=== PATIENT | male | born 2000 | race Caucasian/White ===

== ENCOUNTER 2020-03-15 16:43 | Inpatient (IN) | payer OTHER ==
[~2020-03-15] VITALS: Ht 184.9 cm; Wt 78.0 kg
[2020-03-15 17:00] VITALS: BP 128/84
[2020-03-15] MEDS: AMANTADINE HCL 50 MG/5 ML SYRUP ORAL.SYG PEG SCH (21:57)
[2020-03-15 23:12] LABS: C.DIFF GDH ANTIGEN, Stool Negative (Negative); C.DIFF TOXINS A&B, Stool Negative (Negative)
[2020-03-16] MEDS: 0.9% SODIUM CHLORIDE 10 ML SYRINGE IVP SCH ×4 (00:29→23:22)
[2020-03-16 00:30] VITALS: BP 126/78
[2020-03-16] MEDS ORDERED: INFLUENZA VIRUS VACCINE QVS 2019-20 (3YR+)/PF 60 MCG/0.5 ML SYRINGE IM ONE (00:30)
[2020-03-16 07:15] VITALS: BP 138/76
[2020-03-16] MEDS ORDERED: MODAFINIL 100 MG TABLET PO SCH (09:00)
[2020-03-16 09:09] LABS: BASOPHILS % (AUTO) 0.4 % (0.0-2.0); EOSINOPHILS % (AUTO) 2.4 % (1.0-6.0); HEMATOCRIT 34.9 % (41-53); HEMOGLOBIN 11.5 g/dL (13.5-17.5); LYMPHOCYTES # (AUTO) 0.9 K/uL (1.0-4.8); LYMPHOCYTES % (AUTO) 10.5 % (22.0-44.0); MEAN CORPUSCULAR HEMOGLOBIN 29.3 pg (26.0-34.0); MEAN CORPUSCULAR VOLUME 89 fL (80-100); MONOCYTES # (AUTO) 0.6 K/uL (0.1-1.0); MONOCYTES % (AUTO) 7.3 % (2.0-9.0); NEUTROPHILS # (AUTO) 6.5 K/uL (1.8-7.7); NEUTROPHILS % (AUTO) 79.4 % (40.0-70.0); PLATELET COUNT (AUTO) 290 K/uL (150-450); RED BLOOD CELL COUNT(AUTO) 3.92 MIL/uL (4.50-5.90); RED CELL DISTRIBUTION WIDTH 13.2 % (11.5-14.5)
[2020-03-16 09:25] LABS: ALANINE AMINOTRANSFERASE 95 U/L (12-78); ALBUMIN 3.3 g/dL (3.4-5.0); ALKALINE PHOSPHATASE 119 U/L (46-116); ANION GAP 10 mmol/L (8-16); ASPARTATE AMINOTRANSFERASE 44 U/L (15-37); BILIRUBIN,TOTAL 0.4 mg/dL (0.1-1.0); CALCIUM, TOTAL 9.3 mg/dL (8.8-10.5); CARBON DIOXIDE 27 mmol/L (22-29); CHLORIDE 101 mmol/L (98-107); CREATININE 0.65 mg/dL (0.60-1.30); GLOMERULAR FILTR. RATE CALC > 60 mL/min (>60); GLUCOSE,RANDOM 127 mg/dL (70-110); POTASSIUM 3.8 mmol/L (3.5-5.1); SODIUM SERUM 138 mmol/L (136-145); UREA NITROGEN, BLOOD 18 mg/dL (7-18)
[2020-03-16] MEDS: ENOXAPARIN SODIUM 40 MG/0.4 ML PF SYRINGE SQ SCH (09:34)
[2020-03-16] MEDS: AMANTADINE HCL 50 MG/5 ML SYRUP ORAL.SYG PEG SCH ×2 (09:34→21:13)
[2020-03-16] MEDS: MODAFINIL 100 MG TABLET PEG SCH (09:34)
[2020-03-16 15:26] VITALS: BP 118/71
[2020-03-16] MEDS: ACETAMINOPHEN 650 MG/20.3 ML SOLUTION UDCUP PEG PRN (17:15)
[2020-03-16] MEDS: TRIAMCINOLONE 0.1% 15 GM OINTMENT TP SCH (21:11)
[2020-03-16] MEDS: DiphenhydrAMINE HCL 25 MG CAPSULE GT PRN (21:11)
[2020-03-17] VITALS: BP 124/76
[2020-03-17 06:08] LABS: C.DIFF GDH ANTIGEN, Stool Negative (Negative); C.DIFF TOXINS A&B, Stool Negative (Negative)
[2020-03-17 08:00] VITALS: BP 130/76
[2020-03-17] MEDS: MODAFINIL 100 MG TABLET PEG SCH (09:43)
[2020-03-17] MEDS: AMANTADINE HCL 50 MG/5 ML SYRUP ORAL.SYG PEG SCH ×2 (09:44→19:52)
[2020-03-17] MEDS: ENOXAPARIN SODIUM 40 MG/0.4 ML PF SYRINGE SQ SCH (09:44)
[2020-03-17] MEDS: TRIAMCINOLONE 0.1% 15 GM OINTMENT TP SCH ×3 (09:46→19:55)
[2020-03-17] MEDS: 0.9% SODIUM CHLORIDE 10 ML SYRINGE IVP SCH ×3 (09:47→23:11)
[2020-03-17] MEDS: PSYLLIUM SEED ORANGE SF 5.8 GM/PACKET PO SCH (12:24)
[2020-03-17 16:26] VITALS: BP 122/83
[2020-03-17] MEDS: MUPIROCIN CALCIUM 2% 22 GM OINTMENT NASAL SCH (19:52)
[2020-03-17] MEDS: DiphenhydrAMINE HCL 25 MG CAPSULE GT PRN (19:52)
[2020-03-17 20:13] VITALS: BP 119/75
[2020-03-17 23:30] VITALS: BP 122/73
[2020-03-18] MEDS: TRIAMCINOLONE 0.1% 15 GM OINTMENT TP SCH ×3 (08:58→20:00)
[2020-03-18] MEDS: MUPIROCIN CALCIUM 2% 22 GM OINTMENT NASAL SCH ×2 (08:58→19:59)
[2020-03-18] MEDS: ENOXAPARIN SODIUM 40 MG/0.4 ML PF SYRINGE SQ SCH (08:59)
[2020-03-18 09:00] VITALS: BP 143/91
[2020-03-18] MEDS: PSYLLIUM SEED ORANGE SF 5.8 GM/PACKET PO SCH ×2 (09:00→13:59)
[2020-03-18] MEDS: MODAFINIL 100 MG TABLET PEG SCH (09:00)
[2020-03-18] MEDS: AMANTADINE HCL 50 MG/5 ML SYRUP ORAL.SYG PEG SCH ×2 (09:00→20:00)
[2020-03-18 15:50] VITALS: BP 126/83
[2020-03-18] MEDS: 0.9% SODIUM CHLORIDE 10 ML SYRINGE IVP SCH ×2 (16:00→16:32)
[2020-03-18] MEDS: DiphenhydrAMINE HCL 25 MG CAPSULE GT PRN (19:57)
[2020-03-19] VITALS: BP 128/65
[2020-03-19 07:25] VITALS: BP 119/69
[2020-03-19 07:30] VITALS: BP 119/69
[2020-03-19 08:18] LABS: ALANINE AMINOTRANSFERASE 60 U/L (12-78); ALBUMIN 3.4 g/dL (3.4-5.0); ALKALINE PHOSPHATASE 114 U/L (46-116); ANION GAP 10 mmol/L (8-16); ASPARTATE AMINOTRANSFERASE 30 U/L (15-37); BILIRUBIN,TOTAL 0.3 mg/dL (0.1-1.0); CALCIUM, TOTAL 9.3 mg/dL (8.8-10.5); CARBON DIOXIDE 27 mmol/L (22-29); CHLORIDE 101 mmol/L (98-107); CREATININE 0.62 mg/dL (0.60-1.30); GLOMERULAR FILTR. RATE CALC > 60 mL/min (>60); GLUCOSE,RANDOM 126 mg/dL (70-110); POTASSIUM 3.9 mmol/L (3.5-5.1); SODIUM SERUM 138 mmol/L (136-145); TOTAL PROTEIN, SERUM 7.7 g/dL (6.4-8.2); UREA NITROGEN, BLOOD 17 mg/dL (7-18)
[2020-03-19] MEDS: MUPIROCIN CALCIUM 2% 22 GM OINTMENT NASAL SCH ×2 (08:54→20:11)
[2020-03-19] MEDS: PSYLLIUM SEED ORANGE SF 5.8 GM/PACKET PO SCH (08:54)
[2020-03-19] MEDS: AMANTADINE HCL 50 MG/5 ML SYRUP ORAL.SYG PEG SCH ×2 (08:54→20:11)
[2020-03-19] MEDS: MODAFINIL 100 MG TABLET PEG SCH (08:54)
[2020-03-19] MEDS: ENOXAPARIN SODIUM 40 MG/0.4 ML PF SYRINGE SQ SCH (08:54)
[2020-03-19] MEDS: TRIAMCINOLONE 0.1% 15 GM OINTMENT TP SCH ×3 (08:55→20:10)
[2020-03-19 16:41] VITALS: BP 123/83
[2020-03-19] MEDS: LACTOBAC ACID/BULG/BIFID/THERM TABLET PEG SCH (20:11)
[2020-03-19] MEDS ORDERED: TraZODone HCL 50 MG TABLET PEG SCH (21:00)
[2020-03-19] MEDS: DiphenhydrAMINE HCL 25 MG CAPSULE GT PRN (23:36)
[2020-03-19 23:43] VITALS: BP 148/81
[2020-03-19] MEDS: ACETAMINOPHEN 650 MG/20.3 ML SOLUTION UDCUP PEG PRN (23:43)
[2020-03-20 07:14] VITALS: BP 122/69
[2020-03-20] MEDS: PSYLLIUM SEED ORANGE SF 5.8 GM/PACKET PO SCH (07:26)
[2020-03-20] MEDS: ENOXAPARIN SODIUM 40 MG/0.4 ML PF SYRINGE SQ SCH (07:26)
[2020-03-20] MEDS: MODAFINIL 100 MG TABLET PEG SCH (07:27)
[2020-03-20] MEDS: AMANTADINE HCL 50 MG/5 ML SYRUP ORAL.SYG PEG SCH (07:27)
[2020-03-20] MEDS: LACTOBAC ACID/BULG/BIFID/THERM TABLET PEG SCH (07:27)
[2020-03-20] MEDS: MUPIROCIN CALCIUM 2% 22 GM OINTMENT NASAL SCH ×2 (07:28→21:21)
[2020-03-20] MEDS: TRIAMCINOLONE 0.1% 15 GM OINTMENT TP SCH ×3 (07:29→21:21)
[2020-03-20 16:20] VITALS: BP 133/74
[2020-03-20] MEDS ORDERED: ACETAMINOPHEN 325 MG TABLET PO PRN (17:30)
[2020-03-20 21:00] VITALS: BP 124/73
[2020-03-20] MEDS ORDERED: AMANTADINE HCL 50 MG/5 ML SYRUP ORAL.SYG PO SCH (21:00)
[2020-03-20] MEDS: LACTOBAC ACID/BULG/BIFID/THERM TABLET PO SCH (21:19)
[2020-03-20] MEDS: TraZODone HCL 50 MG TABLET PO SCH (21:20)
[2020-03-21 00:30] VITALS: BP 125/67
[2020-03-21] MEDS: DiphenhydrAMINE HCL 25 MG CAPSULE PO PRN (00:34)
[2020-03-21 08:10] VITALS: BP 114/75
[2020-03-21] MEDS: ENOXAPARIN SODIUM 40 MG/0.4 ML PF SYRINGE SQ SCH (08:56)
[2020-03-21] MEDS: MODAFINIL 100 MG TABLET PO SCH (08:57)
[2020-03-21] MEDS: AMANTADINE HCL 100 MG CAPSULE PO SCH ×2 (08:57→20:54)
[2020-03-21] MEDS: LACTOBAC ACID/BULG/BIFID/THERM TABLET PO SCH ×2 (08:58→20:54)
[2020-03-21] MEDS ORDERED: AMANTADINE HCL 100 MG CAPSULE PO SCH (09:00)
[2020-03-21] MEDS: MUPIROCIN CALCIUM 2% 22 GM OINTMENT NASAL SCH ×2 (09:16→20:53)
[2020-03-21] MEDS: TRIAMCINOLONE 0.1% 15 GM OINTMENT TP SCH ×3 (09:16→21:43)
[2020-03-21] MEDS: PSYLLIUM SEED ORANGE SF 5.8 GM/PACKET PO SCH (14:52)
[2020-03-21 16:05] VITALS: BP 123/71
[2020-03-21] MEDS: TraZODone HCL 50 MG TABLET PO SCH (20:54)
[2020-03-22] VITALS: BP 116/65
[2020-03-22] MEDS: DiphenhydrAMINE HCL 25 MG CAPSULE PO PRN (01:30)
[2020-03-22 07:30] VITALS: BP 124/61
[2020-03-22] MEDS: PSYLLIUM SEED ORANGE SF 5.8 GM/PACKET PO SCH (08:17)
[2020-03-22] MEDS: ENOXAPARIN SODIUM 40 MG/0.4 ML PF SYRINGE SQ SCH (08:17)
[2020-03-22] MEDS: AMANTADINE HCL 100 MG CAPSULE PO SCH ×2 (08:17→21:14)
[2020-03-22] MEDS: TRIAMCINOLONE 0.1% 15 GM OINTMENT TP SCH ×3 (08:18→21:14)
[2020-03-22] MEDS: MODAFINIL 100 MG TABLET PO SCH (08:18)
[2020-03-22] MEDS: LACTOBAC ACID/BULG/BIFID/THERM TABLET PO SCH ×2 (08:18→21:12)
[2020-03-22] MEDS: MUPIROCIN CALCIUM 2% 22 GM OINTMENT NASAL SCH (08:18)
[2020-03-22 16:00] VITALS: BP 138/54
[2020-03-22] MEDS: TraZODone HCL 50 MG TABLET PO SCH (21:13)
[2020-03-23] MEDS: DiphenhydrAMINE HCL 25 MG CAPSULE PO PRN (02:17)
[2020-03-23 02:20] VITALS: BP 117/67
[2020-03-23 07:45] VITALS: BP 124/68
[2020-03-23] MEDS: MODAFINIL 100 MG TABLET PO SCH (08:52)
[2020-03-23] MEDS: AMANTADINE HCL 100 MG CAPSULE PO SCH ×2 (08:52→21:04)
[2020-03-23] MEDS: ENOXAPARIN SODIUM 40 MG/0.4 ML PF SYRINGE SQ SCH (08:53)
[2020-03-23] MEDS: LACTOBAC ACID/BULG/BIFID/THERM TABLET PO SCH ×2 (08:53→21:04)
[2020-03-23] MEDS: PSYLLIUM SEED ORANGE SF 5.8 GM/PACKET PO SCH (08:53)
[2020-03-23] MEDS: TRIAMCINOLONE 0.1% 15 GM OINTMENT TP SCH ×3 (08:53→21:10)
[2020-03-23] MEDS: TraZODone HCL 50 MG TABLET PO SCH (21:04)
[2020-03-23 23:30] VITALS: BP 113/63
[2020-03-24 00:05] VITALS: BP 113/63
[2020-03-24] MEDS ORDERED: NIMO30CA PO (03:29)
[2020-03-24] MEDS ORDERED: AMAN50SY5 PO (03:29)
[2020-03-24] MEDS ORDERED: ENOX40DI9 SQ (03:29)
[2020-03-24] MEDS ORDERED: MODA100T31 PO (03:29)
[2020-03-24] MEDS ORDERED: ACID1TAB13 PO (03:29)
[2020-03-24] MEDS ORDERED: TRI115O TP (03:35)
[2020-03-24] MEDS ORDERED: TRAZ-252 PO (03:35)
[2020-03-24] MEDS ORDERED: PSYL283P35 PO (03:39)
[2020-03-24 07:00] VITALS: BP 128/80
[2020-03-24] MEDS: PSYLLIUM SEED ORANGE SF 5.8 GM/PACKET PO SCH (07:37)
[2020-03-24] MEDS: LACTOBAC ACID/BULG/BIFID/THERM TABLET PO SCH ×2 (07:38→20:36)
[2020-03-24] MEDS: MODAFINIL 100 MG TABLET PO SCH (07:38)
[2020-03-24] MEDS: ENOXAPARIN SODIUM 40 MG/0.4 ML PF SYRINGE SQ SCH (07:39)
[2020-03-24] MEDS: AMANTADINE HCL 100 MG CAPSULE PO SCH ×2 (07:39→20:36)
[2020-03-24] MEDS: TRIAMCINOLONE 0.1% 15 GM OINTMENT TP SCH ×3 (07:41→20:37)
[2020-03-24 16:40] VITALS: BP 116/64
[2020-03-24] MEDS: TraZODone HCL 50 MG TABLET PO SCH (20:36)
[2020-03-25 01:15] VITALS: BP 123/75
[2020-03-25] MEDS: ENOXAPARIN SODIUM 40 MG/0.4 ML PF SYRINGE SQ SCH (05:58)
[2020-03-25] MEDS: LACTOBAC ACID/BULG/BIFID/THERM TABLET PO SCH (05:58)
[2020-03-25] MEDS: AMANTADINE HCL 100 MG CAPSULE PO SCH (05:58)
[2020-03-25] MEDS: MODAFINIL 100 MG TABLET PO SCH (05:58)
[2020-03-25] MEDS: PSYLLIUM SEED ORANGE SF 5.8 GM/PACKET PO SCH (05:58)
[2020-03-25] MEDS: TRIAMCINOLONE 0.1% 15 GM OINTMENT TP SCH (05:59)
[2020-03-25 07:00] VITALS: BP 118/70
== END 2020-03-25 07:15 | DRG 85 ==
LOC: UNDOADMIN 17:21 → 2WR 17:21 → 4E 03-18 13:00
PROVIDERS: ADMIT Physical Medicine & Rehabilitation; ATTEND Physical Medicine & Rehabilitation
DX: S06.9X0A Unspecified intracranial injury without loss of consciousness, initial encounter (principal); J69.0 Pneumonitis due to inhalation of food and vomit; J96.00 Acute respiratory failure, unspecified whether with hypoxia or hypercapnia; I69.354 Hemiplegia and hemiparesis following cerebral infarction affecting left non-dominant side; R13.10 Dysphagia, unspecified; D64.9 Anemia, unspecified; R74.0 Nonspecific elevation of levels of transaminase and lactic acid dehydrogenase [LDH]; N31.2 Flaccid neuropathic bladder, not elsewhere classified; L27.0 Generalized skin eruption due to drugs and medicaments taken internally; L29.9 Pruritus, unspecified; M25.461 Effusion, right knee; R40.2430 Glasgow coma scale score 3-8, unspecified time; Z91.81 History of falling
CPT/HCPCS: 73502; 73552; 80074; 87081; 87324; 87449; 92507; 92523; 92526; 93970; 97112; 97163; 97167; 97530; 97535; 99366; J1650